=== PATIENT | male | born 1945 | race Caucasian/White ===

== ENCOUNTER 2022-10-04 18:58 | Observation (INO) | payer MEDICARE, SELFPAY ==
[2022-10-04] VITALS (22 sets, daily range): BP systolic 112–164; BP diastolic 71–101; PULSE 58–81; RESP 16–18; TEMP 36.7–36.9; O2SAT 96–100; BMI 25.1
--- NOTE | 2022-10-04 19:14 | CRLHL7_ITS ---
For Patients: As a result of the Century Cures Act, medical imaging exams and procedure reports are released immediately into your electronic medical record. You may view this report before your referring provider. If you have questions, please contact your health care provider. INDICATION: .DIZZINESS, VISION CHANGES TECHNIQUE: Head CT without contrast. COMPARISON: None. FINDINGS: Periventricular areas of low attenuation, likely due to chronic small vessel ischemic changes. Generalized volume loss. Atherosclerosis. No intracranial hemorrhage. No discrete mass or mass effect. There is no midline shift. The basilar cisterns are patent. No hydrocephalus. The torrez-white matter interface is otherwise preserved. No acute osseous abnormality. No extracalvarial soft tissue abnormality. The mastoid air cells are clear. The paranasal sinuses are well-aerated. The visualized portions of the orbits and globes are unremarkable. IMPRESSION: No acute intracranial process per unenhanced head CT. Findings conveyed to Dr. Gleason at 8:08 p.m. October 04, 2022. Please note that all CT scans at this facility use dose modulation, iterative reconstruction, and/or weight-based dosing when appropriate to reduce radiation dose to as low as reasonably achievable. Dictated by Caesar Martinez MD @ 10/04/2022 8:11:29 PM (Electronically Signed)
--- NOTE | 2022-10-04 19:14 | ED.GENADULT ---
HPI - General Adult General Time Seen by Provider: 19:14 <Morena Dupont MD - Last Filed: 10/04/22 21:03> Date Seen: 10/04/22 <Morena Dupont MD - Last Filed: 10/04/22 21:03> Chief complaint: Unspecified Complaint, Adult <Morena Dupont MD - Last Filed: 10/04/22 21:03> Stated complaint: Blurred vision, confusion <Morena Dupont MD - Last Filed: 10/04/22 21:03> Time Seen by Provider: 10/04/22 19:12 <Morena Dupont MD - Last Filed: 10/04/22 21:03> Source: patient, family and RN notes reviewed <Morena Dupont MD - Last Filed: 10/04/22 21:03> Mode of arrival: ambulatory <Morena Dupont MD - Last Filed: 10/04/22 21:03> Limitations: no limitations <Morena Dupont MD - Last Filed: 10/04/22 21:03> History of Present Illness HPI narrative: Patient is a 77-year-old male with potential stroke symptoms that was sent directly to have a head CT. He was seen right away after coming back from head CT. Patient was self presenting to the ER with his with concerns of dizziness, blurry vision mild headache. He took a nap about 4:00 p.m. and awoke at 5:30 a.m.. His noted at dinner that he had repetitive speech as well as word-finding difficulty. Patient was aware of this. Is dizziness really isn't a sense of spinning or vertigo. It may be a sense of imbalance. Earlier today at the dentist's he had some difficulty getting out of his chair. Prior to his nap at 4:00 p.m., his states he was quite sharp. She never noted any slurring speech at any time. There were no falls. He seems to be able to use his arms and legs. Denies any numbness or tingling anywhere. He did not note any double vision. Still may have a funny sense of dizziness in his head at this time. Believes the blurry vision might be both eyes. No known history of a stroke. Patient does have Parkinson's and is on a new medication that we are unaware of what it is at this time. He never had any sense of palpitations or irregular heartbeat, no chest pain. <Morena Dupont MD - Last Filed: 10/04/22 21:03> Related Data Home medications: Home Medications Medication Instructions Recorded Confirmed carbidopa-levodopa PO 10/04/22 <Morena Dupont MD - Last Filed: 10/04/22 21:03> Allergies/adverse reactions: Allergies Allergy/AdvReac Type Severity Reaction Status Date / Time Penicillins AdvReac Verified 10/04/22 19:24 <Morena Dupont MD - Last Filed: 10/04/22 21:03> Review of Systems Status of ROS: Reports: 6 or more systems reviewed and unremarkable except as noted in History and below <Morena Dupont MD - Last Filed: 10/04/22 21:03> [facility] Medical History: Medical History Parkinson disease ?G20 - Parkinson's disease (ICD-10) <Morena Dupont MD - Last Filed: 10/04/22 21:03> Social History: Social History Smoking Status: Never smoker Do you use any of these nicotine containing products: None How often do you have a drink containing alcohol: never AUDIT-C Alcohol total score: 0 Non-prescribed substance use: denies use <Morena Dupont MD - Last Filed: 10/04/22 21:03> Exam Const: Vital Signs, click to edit/add: Vital Signs - 24 hr 10/04/22 19:15 10/04/22 19:16 10/04/22 19:20 Temperature 98.1 F Pulse Rate 68 65 Pulse Rate [Left P ulse Oximeter] 81 Respiratory Rate 18 Blood Pressure 157/71 H Blood Pressure [Ri ght Upper Arm] 157/71 H Pulse Oximetry 99 99 96 Oxygen Delivery Me thod Room Air 10/04/22 19:30 10/04/22 19:31 10/04/22 19:32 Temperature Pulse Rate 63 64 63 Pulse Rate [Left P ulse Oximeter] Respiratory Rate 18 Blood Pressure 160/81 H 164/81 H Blood Pressure [Ri ght Upper Arm] Pulse Oximetry 99 99 99 Oxygen Delivery Me thod Room Air 10/04/22 19:48 10/04/22 19:53 10/04/22 20:00 Temperature Pulse Rate 72 68 67 Pulse Rate [Left P ulse Oximeter] Respiratory Rate 18 Blood Pressure 152/73 H Blood Pressure [Ri ght Upper Arm] Pulse Oximetry 97 100 99 Oxygen Delivery Me thod Room Air 10/04/22 20:02 10/04/22 20:03 10/04/22 20:07 Temperature Pulse Rate 68 69 Pulse Rate [Left P ulse Oximeter] Respiratory Rate 18 Blood Pressure 145/71 H Blood Pressure [Ri ght Upper Arm] Pulse Oximetry 99 99 98 Oxygen Delivery Me thod Room Air 10/04/22 20:15 10/04/22 20:17 10/04/22 20:30 Temperature Pulse Rate 69 67 66 Pulse Rate [Left P ulse Oximeter] Respiratory Rate Blood Pressure 158/73 H Blood Pressure [Ri ght Upper Arm] Pulse Oximetry 98 98 98 Oxygen Delivery Me thod 10/04/22 20:32 10/04/22 21:25 10/04/22 21:33 Temperature 98.4 F Pulse Rate 65 60 58 L Pulse Rate [Left P ulse Oximeter] Respiratory Rate 16 Blood Pressure 155/75 H 155/75 H 148/74 H Blood Pressure [Ri ght Upper Arm] Pulse Oximetry 98 98 98 Oxygen Delivery Me thod 10/04/22 21:47 10/04/22 22:02 Temperature Pulse Rate 59 L 58 L Pulse Rate [Left P ulse Oximeter] Respiratory Rate Blood Pressure 112/101 H 155/75 H Blood Pressure [Ri ght Upper Arm] Pulse Oximetry 98 98 Oxygen Delivery Me thod <Morena Dupont MD - Last Filed: 10/04/22 21:03> Vital Signs, click to edit/add: Vital Signs - 24 hr 10/04/22 19:15 10/04/22 19:16 10/04/22 19:20 Temperature 98.1 F Pulse Rate 68 65 Pulse Rate [Left P ulse Oximeter] 81 Respiratory Rate 18 Blood Pressure 157/71 H Blood Pressure [Ri ght Upper Arm] 157/71 H Pulse Oximetry 99 99 96 Oxygen Delivery Me thod Room Air 10/04/22 19:30 10/04/22 19:31 10/04/22 19:32 Temperature Pulse Rate 63 64 63 Pulse Rate [Left P ulse Oximeter] Respiratory Rate 18 Blood Pressure 160/81 H 164/81 H Blood Pressure [Ri ght Upper Arm] Pulse Oximetry 99 99 99 Oxygen Delivery Me thod Room Air 10/04/22 19:48 10/04/22 19:53 10/04/22 20:00 Temperature Pulse Rate 72 68 67 Pulse Rate [Left P ulse Oximeter] Respiratory Rate 18 Blood Pressure 152/73 H Blood Pressure [Ri ght Upper Arm] Pulse Oximetry 97 100 99 Oxygen Delivery Me thod Room Air 10/04/22 20:02 10/04/22 20:03 10/04/22 20:07 Temperature Pulse Rate 68 69 Pulse Rate [Left P ulse Oximeter] Respiratory Rate 18 Blood Pressure 145/71 H Blood Pressure [Ri ght Upper Arm] Pulse Oximetry 99 99 98 Oxygen Delivery Me thod Room Air 10/04/22 20:15 10/04/22 20:17 10/04/22 20:30 Temperature Pulse Rate 69 67 66 Pulse Rate [Left P ulse Oximeter] Respiratory Rate Blood Pressure 158/73 H Blood Pressure [Ri ght Upper Arm] Pulse Oximetry 98 98 98 Oxygen Delivery Me thod 10/04/22 20:32 10/04/22 21:25 10/04/22 21:33 Temperature 98.4 F Pulse Rate 65 60 58 L Pulse Rate [Left P ulse Oximeter] Respiratory Rate 16 Blood Pressure 155/75 H 155/75 H 148/74 H Blood Pressure [Ri ght Upper Arm] Pulse Oximetry 98 98 98 Oxygen Delivery Me thod 10/04/22 21:47 10/04/22 22:02 Temperature Pulse Rate 59 L 58 L Pulse Rate [Left P ulse Oximeter] Respiratory Rate Blood Pressure 112/101 H 155/75 H Blood Pressure [Ri ght Upper Arm] Pulse Oximetry 98 98 Oxygen Delivery Me thod <Russell T Aleman, MD - Last Filed: 10/04/22 23:02> Documenting provider has reviewed patient's vital signs: yes <Morena Dupont MD - Last Filed: 10/04/22 21:03> Common normals: no apparent distress, average body habitus, oriented x3, no limitations, healthy appearing, alert and well nourished <Morena Dupont MD - Last Filed: 10/04/22 21:03> General appearance: cooperative, comfortable, well kempt and well developed <Morena Dupont MD - Last Filed: 10/04/22 21:03> HENMT: Common normals: normocephalic, head/scalp atraumatic, hearing grossly normal bilaterally and external ears normal <Morena Dupont MD - Last Filed: 10/04/22 21:03> Head and scalp: normocephalic and atraumatic <Morena Dupont MD - Last Filed: 10/04/22 21:03> Face and sinus: normal facial exam <Morena Dupont MD - Last Filed: 10/04/22 21:03> External ear: external ears normal <Morena Dupont MD - Last Filed: 10/04/22 21:03> Other: Does seem like he may have slight jaw tremor on talking to him. <Morena Dupont MD - Last Filed: 10/04/22 21:03> Eye: Common normals: PERRL, EOMs intact bilaterally, conjunctivae normal, no scleral icterus and normal visual spicer by confrontation <Morena Dupont MD - Last Filed: 10/04/22 21:03> Eyelid: eyelids normal <Morena Dupont MD - Last Filed: 10/04/22 21:03> Conjunctiva: conjunctiva(e) normal <Morena Dupont MD - Last Filed: 10/04/22 21:03> Pupil: PERRL <Morena Dupont MD - Last Filed: 10/04/22 21:03> Neck & C-Spine: Common normals: full ROM, no lymphadenopathy and supple <Morena Dupont MD - Last Filed: 10/04/22 21:03> Resp: Common normals: normal respiratory effort, no retractions, no use of accessory muscles and clear to auscultation bilaterally <Morena Duopnt MD - Last Filed: 10/04/22 21:03> Auscultation: clear to auscultation bilaterally <Morena Dupont MD - Last Filed: 10/04/22 21:03> Cardio: Common normals: regular rate, regular rhythm, S1 normal heart sound, S2 normal heart sound, no gallops, no clicks and no murmurs <Morena Dupont MD - Last Filed: 10/04/22 21:03> Rate: regular rate <Morena Dupont MD - Last Filed: 10/04/22 21:03> Rhythm: regular rhythm <Morena Dupont MD - Last Filed: 10/04/22 21:03> Heart sounds: S1 normal and S2 normal <Morena Dupont MD - Last Filed: 10/04/22 21:03> GI: Common normals: Normal to inspection, nondistended, normoactive bowel sounds present, soft to palpation, non-tender, no hepatosplenomegaly and no masses <Morena Dupont MD - Last Filed: 10/04/22 21:03> Palpation: soft and no hepatosplenomegaly <Morena Dupont MD - Last Filed: 10/04/22 21:03> Extremity: Common normals: no calf tenderness and no pedal edema <Morena Dupont MD - Last Filed: 10/04/22 21:03> Neuro: Morrison Coma Scale: document GCS findings Payal coma scale eye opening: Spontaneous (4) Payal coma scale verbal response: Orientated (5) Payal coma scale motor response: Obey commands (6) Morrison coma scale total score: 15 <Morena Dupont MD - Last Filed: 10/04/22 21:03> Payal Coma Scale: document GCS findings Payal coma scale total score: 15 <Russell Aleman MD - Last Filed: 10/04/22 23:02> Common normals: oriented x3, CN's II-XII intact bilaterally, moves all extremities, no focal motor deficits and no sensory deficits noted <Morena Dupont MD - Last Filed: 10/04/22 21:03> Sensorium/orientation: alert <Morena Dupont MD - Last Filed: 10/04/22 21:03> Speech: speech normal <Morena Dupont MD - Last Filed: 10/04/22 21:03> Psych: Appearance: well kempt <Morena Dupont MD - Last Filed: 10/04/22 21:03> Course Course Hospital Course: Patient already had his emergent head CT. We will be talking to Stroke Neurology hopefully shortly. Will get appropriate labs. He will be on cardiac monitoring and pulse oximetry but no evidence of arrhythmia at this time based on initial EKG. Would say initial NIH is 0 at this time. Other possible etiologies are metabolic, infectious, side effects of medication. Do need to try to work on medication reconciliation for this patient. <Morena Dupont MD - Last Filed: 10/04/22 21:03> Reevaluation(s) Time of Reevaluation #1: 20:10 <Morena Dupont MD - Last Filed: 10/04/22 21:03> Reevaluation #1: Have reviewed with patient stroke neurology recommendations. He states he has been told not to take aspirin/nsaids due to anemia history. For the time being, we are going to give dose tonight and see if we can access more records on him. His care is at [facility], neurology at [facility] for [facility]. <Morena Dupont MD - Last Filed: 10/04/22 21:03> Time of Reevaluation #2: 20:39 <Morena Dupont MD - Last Filed: 10/04/22 21:03> Reevaluation #2: It is reported to me that patient is getting his MRI now. Will await this test. Obviously we will not need to wait until tomorrow. Hospitalist will await MRI result and see if there is still need for admission. <Morena Dupont MD - Last Filed: 10/04/22 21:03> Time of Reevaluation #3: 22:49 <Russell Almean MD - Last Filed: 10/04/22 23:02> Reevaluation #3: MRI is negative, patient rechecked and symptoms are resolved. Care discussed with stroke neurology who recommends admission for further workup, recommends full-dose aspirin which is already being given at starting daily aspirin daily. Care discussed with Dr. Mckeon, hospitalist to defers admission to overnight e-hospitalist. 23:00 Care discussed with [facility] e-hospitalist. <Russell Aleman MD - Last Filed: 10/04/22 23:02> Consultations Consultation #1: Spoke with Dr. Jones, he reviewed head CT, would like CTA's done. Likely no lytics. He will talk to us after these are done. 8:05 p.m.: Have spoken with Stroke Neurology. The CTA is not showing any concerns as far cerebrovascular disease. 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 He would like patient to have 324 mg aspirin now, 81 mg aspirin likely starting tomorrow. No further anti-platelet medicine at this time. Await MRI brain tomorrow for further management. He would like him observed in the hospital overnight. <Morena Dupont MD - Last Filed: 10/04/22 21:03> Time: 19:32 <Morena Dupont MD - Last Filed: 10/04/22 21:03> Consultation #2: Spoke with hospitalist Dr. Holguin regarding patient and neurologist's recommendations. He accepts cares for observation. <Morena Dupont MD - Last Filed: 10/04/22 21:03> Time: 20:13 <Morena Dupont MD - Last Filed: 10/04/22 21:03> 22:42 <Russell Aleman MD - Last Filed: 10/04/22 23:02> Consultation #3: MRI is negative, care discussed with stroke neurology who again recommends admission for further evaluation. <Russell Aleman MD - Last Filed: 10/04/22 23:02> Vital Signs Vital signs: Initial Vital Signs Pulse Rate 68 10/04/22 19:15 Blood Pressure 157/71 H 10/04/22 19:15 Blood Pressure Mean 99 10/04/22 19:15 Pulse Oximetry 99 10/04/22 19:15 Vital Signs Pulse Rate 68 10/04/22 19:15 Blood Pressure 157/71 H 10/04/22 19:15 Pulse Oximetry 99 10/04/22 19:15 Temperature 98.4 F 10/04/22 21:25 Pulse Rate 58 L 10/04/22 22:02 Respiratory Rate 16 10/04/22 21:25 Blood Pressure 155/75 H 10/04/22 22:02 Pulse Oximetry 98 10/04/22 22:02 Oxygen Delivery Method Room Air 10/04/22 20:02 <Morena Dupont MD - Last Filed: 10/04/22 21:03> Initial Vital Signs Pulse Rate 68 10/04/22 19:15 Blood Pressure 157/71 H 10/04/22 19:15 Blood Pressure Mean 99 10/04/22 19:15 Pulse Oximetry 99 10/04/22 19:15 Vital Signs Pulse Rate 68 10/04/22 19:15 Blood Pressure 157/71 H 10/04/22 19:15 Pulse Oximetry 99 10/04/22 19:15 Temperature 98.4 F 10/04/22 21:25 Pulse Rate 58 L 10/04/22 22:02 Respiratory Rate 16 10/04/22 21:25 Blood Pressure 155/75 H 10/04/22 22:02 Pulse Oximetry 98 10/04/22 22:02 Oxygen Delivery Method Room Air 10/04/22 20:02 <Russell Aleman MD - Last Filed: 10/04/22 23:02> Medical Decision Making Lab Data Lab results reviewed: Yes I reviewed the patient's lab results <Morena Dupont MD - Last Filed: 10/04/22 21:03> Labs: Lab Results 10/04/22 Range/Units 19:25 WBC 5.75 (4.50-11.00) K/uL RBC 4.26 L (4.30-5.90) m/uL Hgb 13.4 L (13.5-17.5) gm/dL Hct 39.4 (37.0-53.0) % MCV 93 (80-100) fL MCH 32 (26-34) pg MCHC 34 (32-36) gm/dL RDW Coeff of Julito 12.2 (11.5-15.5) % Plt Count 206 (140-440) K/uL Neut % (Auto) 61.0 (42.0-72.0) % Lymph % (Auto) 27.0 (20-44) % [place] % (Auto) 8.0 (0.0-11.0) % Eos % (Auto) 2.8 (0.0-7.0) % Baso % (Auto) 0.3 (0.0-3.0) % Neut # (Auto) 3.51 (1.7-7.0) K/uL Lymph # (Auto) 1.55 (0.90-2.90) K/uL [place] # (Auto) 0.50 (0.00-0.90) K/UL Eos # (Auto) 0.16 (0.00-0.50) K/uL Baso # (Auto) 0.02 (0.00-0.30) K/uL Abs Immat Gran (auto) 0.05 (0.00-0.30) K/uL Imm/Tot Granulo (auto) 0.9 % INR 0.94 (0.91-1.10) APTT 28 (23-33) Seconds Sodium 140 (135-149) mmol/L Potassium 4.0 (3.6-5.1) mmol/L Chloride 103 (96-114) mmol/L Carbon Dioxide 26 (20-32) mmol/L BUN 23 (7-30) mg/dL Creatinine 1.2 (0.5-1.5) mg/dL Estimated Creat Clear 55.78 Estimated GFR 63 ml/min Glucose 167 H (60-115) mg/dL Calcium 9.3 (8.4-10.6) mg/dL Total Bilirubin 0.7 (0.1-1.5) mg/dL AST 32 (12-35) U/L ALT 9 (4-50) U/L Alkaline Phosphatase 61 (40-150) U/L Troponin I < 0.01 L (0.01-0.04) ng/mL NT-Pro-B Natriuret Pep 235 pg/mL Total Protein 7.7 (6.0-8.3) g/dL Albumin 4.7 (3.3-5.0) g/dL <Morena Dupont MD - Last Filed: 10/04/22 21:03> Lab Results 10/04/22 Range/Units 19:25 WBC 5.75 (4.50-11.00) K/uL RBC 4.26 L (4.30-5.90) m/uL Hgb 13.4 L (13.5-17.5) gm/dL Hct 39.4 (37.0-53.0) % MCV 93 (80-100) fL MCH 32 (26-34) pg MCHC 34 (32-36) gm/dL RDW Coeff of Julito 12.2 (11.5-15.5) % Plt Count 206 (140-440) K/uL Neut % (Auto) 61.0 (42.0-72.0) % Lymph % (Auto) 27.0 (20-44) % [place] % (Auto) 8.0 (0.0-11.0) % Eos % (Auto) 2.8 (0.0-7.0) % Baso % (Auto) 0.3 (0.0-3.0) % Neut # (Auto) 3.51 (1.7-7.0) K/uL Lymph # (Auto) 1.55 (0.90-2.90) K/uL [place]ette # (Auto) 0.50 (0.00-0.90) K/UL Eos # (Auto) 0.16 (0.00-0.50) K/uL Baso # (Auto) 0.02 (0.00-0.30) K/uL Abs Immat Gran (auto) 0.05 (0.00-0.30) K/uL Imm/Tot Granulo (auto) 0.9 % INR 0.94 (0.91-1.10) APTT 28 (23-33) Seconds Sodium 140 (135-149) mmol/L Potassium 4.0 (3.6-5.1) mmol/L Chloride 103 (96-114) mmol/L Carbon Dioxide 26 (20-32) mmol/L BUN 23 (7-30) mg/dL Creatinine 1.2 (0.5-1.5) mg/dL Estimated Creat Clear 55.78 Estimated GFR 63 ml/min Glucose 167 H (60-115) mg/dL Calcium 9.3 (8.4-10.6) mg/dL Total Bilirubin 0.7 (0.1-1.5) mg/dL AST 32 (12-35) U/L ALT 9 (4-50) U/L Alkaline Phosphatase 61 (40-150) U/L Troponin I < 0.01 L (0.01-0.04) ng/mL NT-Pro-B Natriuret Pep 235 pg/mL Total Protein 7.7 (6.0-8.3) g/dL Albumin 4.7 (3.3-5.0) g/dL <Russell Aleman MD - Last Filed: 10/04/22 23:02> Imaging Data CT scan - head: Attestation: I have reviewed the pertinent imaging results. <Morena Dupont MD - Last Filed: 10/04/22 21:03> Radiologist's impression: Patient: CESAR JOHN Facility:?[facility] Patient ID:?[id number] Site Patient ID:?[id number]. Site :?[id number] Study:?CT Head STROKE CODE-10/04/2022 7:27:37 PM Ordering Physician:Clare Berg Final Report: INDICATION: .DIZZINESS, VISION CHANGES TECHNIQUE: Head CT without contrast. COMPARISON: None. FINDINGS: Periventricular areas of low attenuation, likely due to chronic small vessel ischemic changes. Generalized volume loss. Atherosclerosis. No intracranial hemorrhage. No discrete mass or mass effect. There is no midline shift. The basilar cisterns are patent. No hydrocephalus. The torrez-white matter interface is otherwise preserved. No acute osseous abnormality. No extracalvarial soft tissue abnormality. The mastoid air cells are clear. The paranasal sinuses are well-aerated. The visualized portions of the orbits and globes are unremarkable. IMPRESSION: No acute intracranial process per unenhanced head CT. Findings conveyed to Dr. Gleason at 8:08 p.m. October 04, 2022. Please note that all CT scans at this facility use dose modulation, iterative reconstruction, and/or weight-based dosing when appropriate to reduce radiation dose to as low as reasonably achievable. Dictated by Caesar Martinez MD @ 10/04/2022 8:11:29 PM (Electronic Signature) <Morena Dupont MD - Last Filed: 10/04/22 21:03> CT- Other: Attestation: I have reviewed the pertinent imaging results. <Morena Dupont MD - Last Filed: 10/04/22 21:03> Radiologist's impression: Patient: CESAR JOHN Facility:?[facility] Patient ID:?[id number] Site Patient ID:?[id number]. Site :?1945 Study:?CT Neck Angio Angio STROKE CODE-10/04/2022 7:51:31 PM Ordering Physician:Clare Berg Preliminary Report: COMPARISON: None. IMPRESSION: CTA head: Normal filling of both distal ICA, anterior and middle cerebral branches. The basilar and posterior cerebral arteries are normal. No arterial occlusion is seen. No aneurysm is seen. CTA neck: Normal filling of both common, proximal, mid, and distal ICAs, and vertebral arteries. Hypoplastic right vertebral artery. No arterial occlusion is seen. No aneurysm is seen. Dictated by Caesar Martinez MD @ 10/04/2022 8:46:44 PM Read by:?Caesar Martinez MD @ 10/04/2022 20:46:48 <Morena Dupont MD - Last Filed: 10/04/22 21:03> ECG Data Attestation: I personally reviewed and interpreted this ECG as follows: (Normal sinus rhythm, normal EKG. 60 beats per minute. QT corrected 429 milliseconds.) <Morena Dupont MD - Last Filed: 10/04/22 21:03> Prior ECG tracings: not available for review <Morena Dupont MD - Last Filed: 10/04/22 21:03> Discharge Plan Discharge Clinical Impression: Word finding difficulty, Dizziness, Parkinson's disease <Morena Dupont MD - Last Filed: 10/04/22 21:03> Patient Disposition: Admitted As Observation <Morena Dupont MD - Last Filed: 10/04/22 21:03>
--- NOTE | 2022-10-04 19:34 | CRLHL7_ITS ---
For Patients: As a result of the Century Cures Act, medical imaging exams and procedure reports are released immediately into your electronic medical record. You may view this report before your referring provider. If you have questions, please contact your health care provider. INDICATION: Dizziness, visual changes. TECHNIQUE: CTA neck with contrast bolus tracking, 3D angiographic rendering using maximum intensity projection (MIP) and images permanently archived. FINDINGS: There is minor carotid atherosclerosis. There is no significant carotid artery stenosis or dissection. There is no significant vertebral artery stenosis or dissection. The soft tissues of the neck are within normal limits. The cervical spine is in normal alignment. Degenerative changes are noted in the cervical spine. IMPRESSION: No significant carotid or vertebral artery stenosis or dissection. Please note that all CT scans at this facility use dose modulation, iterative reconstruction, and/or weight-based dosing when appropriate to reduce radiation dose to as low as reasonably achievable. Dictated by Ronaldo Curry MD @ 10/05/2022 1:48:12 PM (Electronically Signed)
[2022-10-04 19:44] LABS: Basophils Absolute Auto 0.02 K/uL (0.00-0.30); Basophils Percent Auto 0.3 % (0.0-3.0); Eosinophils Absolute Auto 0.16 K/uL (0.00-0.50); Eosinophils Percent Auto 2.8 % (0.0-7.0); Hematocrit 39.4 % (37.0-53.0); Hemoglobin* 13.4 gm/dL (13.5-17.5); Immature Granulocytes Abs Auto 0.05 K/uL (0.00-0.30); Immature Granulocytes Pct Auto 0.9 %; Lymphocytes Absolute Auto 1.55 K/uL (0.90-2.90); Mean Corpuscular HGB Conc 34 gm/dL (32-36); Mean Corpuscular Hemoglobin 32 pg (26-34); Mean Corpuscular Volume 93 fL (80-100); Neutrophils Absolute Auto 3.51 K/uL (1.7-7.0); Platelet Count* 206 K/uL (140-440); RDW Coefficient of Variation % 12.2 % (11.5-15.5); Red Blood Count 4.26 m/uL (4.30-5.90); White Blood Count* 5.75 K/uL (4.50-11.00)
[2022-10-04 19:49] LABS: Slide Review Reflex No
[2022-10-04 19:58] LABS: Albumin* 4.7 g/dL (3.3-5.0); Chloride* 103 mmol/L (96-114)
[2022-10-04 19:59] LABS: INR 0.94 (0.91-1.10); Prothrombin Time 13.1 Seconds; Sodium* 140 mmol/L (135-149)
[2022-10-04 20:00] LABS: Partial Thromboplastin Time* 28 Seconds (23-33)
[2022-10-04 20:01] LABS: Alkaline Phosphatase* 61 U/L (40-150); Aspartate Amino Transferase* 32 U/L (12-35); Bilirubin Total* 0.7 mg/dL (0.1-1.5); Blood Urea Nitrogen* 23 mg/dL (7-30); Carbon Dioxide* 26 mmol/L (20-32); Creatinine* 1.2 mg/dL (0.5-1.5); Est. Creatinine Clearance* 55.78; Estimated Glomerular Filt Rate 63 ml/min; Total Protein* 7.7 g/dL (6.0-8.3)
[2022-10-04 20:02] LABS: Alanine Aminotransferase* 9 U/L (4-50); Calcium* 9.3 mg/dL (8.4-10.6); Glucose* 167 mg/dL (60-115)
--- NOTE | 2022-10-04 20:07 | CRLHL7_ITS ---
For Patients: As a result of the Century Cures Act, medical imaging exams and procedure reports are released immediately into your electronic medical record. You may view this report before your referring provider. If you have questions, please contact your health care provider. INDICATION: Dizziness, vision issues, episode of word finding difficulty. TECHNIQUE: Multiplanar multisequence MRI of the brain without contrast. COMPARISON: CT head 10/04/2022. FINDINGS: Small focus of susceptibility artifact in the right thalamus, likely chronic microhemorrhage. No acute intracranial hemorrhage, mass effect, or extra-axial fluid collection. No restricted diffusion. Proportionate prominence of the ventricles and sulci, reflecting mild generalized cerebral volume loss. Scattered foci of T2 FLAIR hyperintense signal in the supratentorial white matter and pau, nonspecific but statistically likely representing chronic small vessel ischemic disease. Midline structures are intact. Flow voids at the skull base are maintained. Orbits and calvarium are unremarkable. Paranasal sinuses and mastoid air cells are clear. IMPRESSION: 1. No acute intracranial abnormality. 2. Mild generalized cerebral volume loss and chronic small vessel ischemic disease. 3. Chronic microhemorrhage right thalamus. Dictated by Eder Jenkins MD @ 10/04/2022 10:28:10 PM (Electronically Signed)
[2022-10-04 20:11] LABS: NT Pro B Type NatriureticPept* 235 pg/mL
[2022-10-04 20:16] LABS: Troponin I* < 0.01 ng/mL (0.01-0.04)
[2022-10-04] MEDS: ASPIRIN 81 MG TAB.CHEW 324 MG PO (20:19)
[2022-10-05] VITALS: PULSE 55; RESP 16; RESP 18; TEMP 36.6; O2SAT 97; O2SAT 98; BMI 26.4
--- NOTE | 2022-10-05 00:14 | PM.IMCN1 ---
Date of Consult Consult date: 10/05/22 Requesting Physician: Hospitalist Primary Care Provider: Not a Local Provider Consult Narrative Narrative: Jagdish Portillo is a 77 year old male [facility] Medical History Parkinson disease ?G20 - Parkinson's disease (ICD-10) Social History Smoking Status: Never smoker Do you use any of these nicotine containing products: None How often do you have a drink containing alcohol: never AUDIT-C Alcohol total score: 0 Non-prescribed substance use: denies use Meds Home Medications and Allergies Home Medications Medication Instructions Recorded Confirmed Type carbidopa-levodopa PO 10/04/22 History Allergies Allergy/AdvReac Type Severity Reaction Status Date / Time Penicillins AdvReac Verified 10/04/22 19:24 Exam Const: Vital Signs, click to edit/add: Vital Signs - 24 hr 10/04/22 19:15 10/04/22 19:16 10/04/22 19:20 Temperature 98.1 F Pulse Rate 68 65 Pulse Rate [Left P ulse Oximeter] 81 Respiratory Rate 18 Blood Pressure 157/71 H Blood Pressure [Ri ght Upper Arm] 157/71 H Pulse Oximetry 99 99 96 Oxygen Delivery Me thod Room Air 10/04/22 19:30 10/04/22 19:31 10/04/22 19:32 Temperature Pulse Rate 63 64 63 Pulse Rate [Left P ulse Oximeter] Respiratory Rate 18 Blood Pressure 160/81 H 164/81 H Blood Pressure [Ri ght Upper Arm] Pulse Oximetry 99 99 99 Oxygen Delivery Me thod Room Air 10/04/22 19:48 10/04/22 19:53 10/04/22 20:00 Temperature Pulse Rate 72 68 67 Pulse Rate [Left P ulse Oximeter] Respiratory Rate 18 Blood Pressure 152/73 H Blood Pressure [Ri ght Upper Arm] Pulse Oximetry 97 100 99 Oxygen Delivery Me thod Room Air 10/04/22 20:02 10/04/22 20:03 10/04/22 20:07 Temperature Pulse Rate 68 69 Pulse Rate [Left P ulse Oximeter] Respiratory Rate 18 Blood Pressure 145/71 H Blood Pressure [Ri ght Upper Arm] Pulse Oximetry 99 99 98 Oxygen Delivery Me thod Room Air 10/04/22 20:15 10/04/22 20:17 10/04/22 20:30 Temperature Pulse Rate 69 67 66 Pulse Rate [Left P ulse Oximeter] Respiratory Rate Blood Pressure 158/73 H Blood Pressure [Ri ght Upper Arm] Pulse Oximetry 98 98 98 Oxygen Delivery Me thod 10/04/22 20:32 10/04/22 21:25 10/04/22 21:33 Temperature 98.4 F Pulse Rate 65 60 58 L Pulse Rate [Left P ulse Oximeter] Respiratory Rate 16 Blood Pressure 155/75 H 155/75 H 148/74 H Blood Pressure [Ri ght Upper Arm] Pulse Oximetry 98 98 98 Oxygen Delivery Me thod 10/04/22 21:47 10/04/22 22:02 10/04/22 22:17 Temperature Pulse Rate 59 L 58 L 60 Pulse Rate [Left P ulse Oximeter] Respiratory Rate Blood Pressure 112/101 H 155/75 H 156/71 H Blood Pressure [Ri ght Upper Arm] Pulse Oximetry 98 98 98 Oxygen Delivery Me thod 10/04/22 22:32 Temperature Pulse Rate 58 L Pulse Rate [Left P ulse Oximeter] Respiratory Rate Blood Pressure 150/83 H Blood Pressure [Ri ght Upper Arm] Pulse Oximetry 97 Oxygen Delivery Me thod Labs Labs: Short CBC 10/04/22 Range/Units 19:25 WBC 5.75 (4.50-11.00) K/uL Hgb 13.4 L (13.5-17.5) gm/dL Hct 39.4 (37.0-53.0) % Plt Count 206 (140-440) K/uL BMP 10/04/22 19:25 Sodium 140 Potassium 4.0 Chloride 103 Carbon Dioxide 26 BUN 23 Creatinine 1.2 Glucose 167 H Calcium 9.3 Cardiac Enzymes 10/04/22 Range/Units 19:25 Troponin I < 0.01 L (0.01-0.04) ng/mL Liver Function 10/04/22 Range/Units 19:25 Total Bilirubin 0.7 (0.1-1.5) mg/dL AST 32 (12-35) U/L ALT 9 (4-50) U/L Alkaline Phosphatase 61 (40-150) U/L Albumin 4.7 (3.3-5.0) g/dL Assessment and Plan Assessment and plan (1) Dizziness: Status: Acute (2) Parkinson's disease: Status: Acute (3) Word finding difficulty: Status: Acute Plan [facility] ADMISSION SUPPORT NOTE eHospitalist was contacted by Dr. Aleman with request of admission support for [] History taken by speaking to the ED provider and patient on tele visit. HPI: Patient is a 77-year-old male with medical history of Parkinson disease on carbidopa levodopa, who presents to ER with chief complaint of dizziness without vertigo, having speech disturbance with repetition and word finding difficulty. He also had a sensation of blurring vision , he was able to ambulate prior to arrival, no reported focal weakness numbness or diplopia. He was at his baseline health around 4 PM when he went to take a nap and woke up at 5:30 with these deficits. On arrival stroke pathway was initiated and patient was managed in discussion with stroke neurology, during his ED course CT head CTA head and neck and MRI were done that were negative for stroke or acute abnormalities, he was given full dose 325 mg of aspirin and neurology recommended overnight observation given recent symptoms. No palpitations or chest pain. No fever or other focal symptoms. Patient's speech difficulty and dizziness significantly improved during his stay in ER. He still have mild headache in the frontal region. Home Medications: Carbidopa-levodopa Pertinent Medical History: Parkinson disease Pertinent Social History . not a smoker, denies alcohol as per EMR Exam (performed via interactive video with assistance of bedside nurse): General: alert, cooperative, no acute distress HEENT: Atraumatic head, eyes spontaneously open Lungs: Equal air entry bilaterally , no wheeze CV: normal rate and rhythm without loud murmur Abd: No abdominal distention Ext: no pitting edema noted Skin: no bruises on gross visualization of exposed skin Neuro: alert, oriented x3 . moves extremities without any new focal deficit against gravity for 10 and 5 seconds respectively, able to read at 6 feet using monocular vision although somewhat blurry on the right side, but patient has differential refractive at baseline, binocular vision intact grossly at around 5 feet Assessment and Plan: TIA Patient's presenting symptoms of dizziness and speech difficulties significantly improved CT head CTA head and neck, MRI negative for acute stroke as summarized above S/p 325 mg aspirin, patient to be started on 81 mg of aspirin daily tomorrow Continue other stroke work-up including telemetry monitoring, PT, speech therapy evaluation, A1c, lipid panel, consult neurology for further recommendations echo with bubble study, please order in am if available If hyperlipidemia noted, start on statin Allow permissive hypertension in first 24 hours, hold antihypertensive unless SBP greater than 220 Avoid hyperthermia, dehydration, start IVF if unable to eat, As needed Tylenol for headache Comorbidities Parkinson disease?continue home carbidopa levodopa at home dose once swallow screen done Patient reported he took his last dose today, and next due is in the morning of 10/05 Refractive Error b/l- f/u OP with ophthalmology Noted CBC and BMP, unremarkable but BSR 167, f/u a1c full code, SCDs, Lovenox, regular diet if passes swallow screen, appropriate for observation Thank you for including Denise Avery Hospitalist in the patients care. This service is available for further assistance as requested by your care team by calling [phone].
[2022-10-05 03:00] VITALS: BP 128/76; RESP 16; TEMP 36.6; O2SAT 95
[2022-10-05 06:32] LABS: Hemoglobin A1C* 5.16 % (0-5.6)
[2022-10-05 06:35] LABS: Cholesterol* 123 mg/dL (90-199); HDL Cholesterol* 41 mg/dL (>=40); LDL Cholesterol Calculated 62 mg/dL (<100); Triglycerides* 98 mg/dL (40-149)
--- NOTE | 2022-10-05 07:30 | PC.NURSE ---
Pt alert and oriented x3. Afebrile. Pt reported 3/10 pain headache, pt was offered pain medications, pt refused stating ?the aspirin helped? it is almost gone. Pt denies chest pain, SOB, and vomiting. Pt is up?SBA in room. Pt is tolerating a regular diet and voiding. Pt slept intermittently throughout night.?
[2022-10-05 07:34] VITALS: PULSE 62
[2022-10-05 08:00] VITALS: BP 155/89; RESP 18; TEMP 36.7; O2SAT 96
[2022-10-05] MEDS: CARBIDOPA-LEVODOPA 25-100 TABLET 2.5 TAB PO ×2 (08:42→12:30)
[2022-10-05 12:00] VITALS: BP 126/70; RESP 18; TEMP 36.7; O2SAT 96
[2022-10-05] MEDS: SODIUM CHLORIDE 0.9 % (FLUSH) 10 ML SYRINGE 5 ML IVF (12:30)
--- NOTE | 2022-10-05 12:53 | P.IMHP_ITS ---
Hospitalist- H&P: HPI History of Present Illness Date Seen: 10/05/22 Chief complaint: Blurred vision, confusion Narrative: ADMISSION HISTORY AND PHYSICAL - HOSPITALIST Chief Complaint: HPI: ER COURSE: CODE STATUS: EMERGENCY CONTACT PLAN: I've updated the [facility], medications and allergies in the Expanse tabs. INVESTIGATIONS: LABS/MICRO/ECG/IMAGING Afebrile. Blood pressure 126/70. Respiratory rate 18. Pulse ox 96% on room air. Weight is 86 kg CBC is unremarkable. INR 0.94 A1c 5.16 Electrolytes totally normal. Glucose 167. Troponin undetectable Normal cholesterol panel Normal thyroid IMPRESSION: CT head, CTA No acute intracranial process per unenhanced head CT. Brain MR 1. No acute intracranial abnormality. 2. Mild generalized cerebral volume loss and chronic small vessel ischemic disease. 3. Chronic microhemorrhage right thalamus. REVIEW OF SYSTEMS: 12-point ROS completed with patient and negative unless otherwise stated in HPI or below. PHYSICAL EXAM: CONSTITUTIONAL: Conversive, good historian. A/O. Knows setting and context. no obvious defect; speech issue. VITAL SIGNS: see record. HEENT: Normocephalic, atraumatic. PERRL, EOMI, conjunctivae pink, no scleral icterus. Ears and nose externally normal. Pharynx normal. NECK: No JVD. No carotid bruit, no thyromegaly, no adenopathy. CHEST: Clear to auscultation bilaterally HEART: S1 and S2 normal. No harsh murmurs. Edema MUSCULOSKELETAL: No gross joint deformity or swelling. NEURO: Cranial nerves intact. Grossly intact. No asymmetric findings. SKIN: No rashes, petechiae, concerning changes PSYCHIATRIC: Euthymic. ADMIT TO MEDSURG: FLOOR CARE DVT: SCDs GI: PO intake Time spent: 70 minutes examining patient, conferring with family and patient, care staff, developing care plan [facility] Medical History (Updated 10/05/22 @ 13:04 by Brenda Blanchard MD) Kidney stone ?N20.0 - Calculus of kidney (ICD-10) Crohn disease ?K50.90 - Crohn's disease, unspecified, without complications (ICD-10) Hyperlipidemia ?E78.5 - Hyperlipidemia, unspecified (ICD-10) Parkinson disease ?G20 - Parkinson's disease (ICD-10) Surgical History (Updated 10/05/22 @ 12:58 by Brenda Blanchard MD) History of tonsillectomy ?Z90.89 - Acquired absence of other organs (ICD-10) History of knee surgery ?Z98.890 - Other specified postprocedural states (ICD-10) Social History (Updated 10/05/22 @ 12:58 by Brenda Blanchard MD) Narrative: . see's PCP in [facility]) and PCP for Parkinson's is at [facility] What is your current living situation?: I presently have a place to live Problems where you live: no known problems Problems where you live details: no known problems In the past 12 months, utilities in danger of being shut off: no In the past 12 mos, have been you worried that your food would run out before you had money to buy more?: never true In the past 12 mos, the food you bought just didn't last and you didn't have money to buy more?: never true Smoking Status: Never smoker Do you use any of these nicotine containing products: None Second hand tobacco smoke exposure: No How often do you have a drink containing alcohol: monthly or less Alcohol type: beer and wine How often do you have six or more drinks on one occasion: Never AUDIT-C Alcohol total score: 1 Non-prescribed substance use: denies use Caffeine: No How often does anyone, including family, friends and others, physically hurt you : never How often does anyone, including family, friends and others, insult or talk down to you: never How often does anyone, including family, friends and others, threaten you with harm: never How often does anyone, including family, friends and others, scream or curse at you: never service: No Meds Home Medications and Allergies Home Medications Medication Instructions Recorded Confirmed Type atorvastatin 20 mg tablet 20 mg PO QHS 10/05/22 10/05/22 History carbidopa 25 mg-levodopa 100 mg 2.5 tab PO QID 10/05/22 10/05/22 History tablet folic acid-vit B6-vit B12 2.5 1 tab PO DAILY 10/05/22 10/05/22 History mg-25 mg-2 mg tablet (Folbic) melatonin 3 mg capsule 3 mg PO HS PRN 10/05/22 10/05/22 History meloxicam 15 mg tablet 15 mg PO DAILY 10/05/22 10/05/22 History Allergies Allergy/AdvReac Type Severity Reaction Status Date / Time Penicillins AdvReac Verified 10/04/22 19:24 Exam Const: Vital Signs, click to edit/add: Vital Signs - 24 hr 10/04/22 19:15 10/04/22 19:16 10/04/22 19:20 Temperature 98.1 F Pulse Rate 68 65 Pulse Rate [Left P ulse Oximeter] 81 Respiratory Rate 18 Blood Pressure 157/71 H Blood Pressure [Ri ght Arm] Blood Pressure [Ri ght Upper Arm] 157/71 H Pulse Oximetry 99 99 96 Oxygen Delivery Me thod Room Air 10/04/22 19:30 10/04/22 19:31 10/04/22 19:32 Temperature Pulse Rate 63 64 63 Pulse Rate [Left P ulse Oximeter] Respiratory Rate 18 Blood Pressure 160/81 H 164/81 H Blood Pressure [Ri ght Arm] Blood Pressure [Ri ght Upper Arm] Pulse Oximetry 99 99 99 Oxygen Delivery Me thod Room Air 10/04/22 19:48 10/04/22 19:53 10/04/22 20:00 Temperature Pulse Rate 72 68 67 Pulse Rate [Left P ulse Oximeter] Respiratory Rate 18 Blood Pressure 152/73 H Blood Pressure [Ri ght Arm] Blood Pressure [Ri ght Upper Arm] Pulse Oximetry 97 100 99 Oxygen Delivery Me thod Room Air 10/04/22 20:02 10/04/22 20:03 10/04/22 20:07 Temperature Pulse Rate 68 69 Pulse Rate [Left P ulse Oximeter] Respiratory Rate 18 Blood Pressure 145/71 H Blood Pressure [Ri ght Arm] Blood Pressure [Ri ght Upper Arm] Pulse Oximetry 99 99 98 Oxygen Delivery Me thod Room Air 10/04/22 20:15 10/04/22 20:17 10/04/22 20:30 Temperature Pulse Rate 69 67 66 Pulse Rate [Left P ulse Oximeter] Respiratory Rate Blood Pressure 158/73 H Blood Pressure [Ri ght Arm] Blood Pressure [Ri ght Upper Arm] Pulse Oximetry 98 98 98 Oxygen Delivery Me thod 10/04/22 20:32 10/04/22 21:25 10/04/22 21:33 Temperature 98.4 F Pulse Rate 65 60 58 L Pulse Rate [Left P ulse Oximeter] Respiratory Rate 16 Blood Pressure 155/75 H 155/75 H 148/74 H Blood Pressure [Ri ght Arm] Blood Pressure [Ri ght Upper Arm] Pulse Oximetry 98 98 98 Oxygen Delivery Me thod 10/04/22 21:47 10/04/22 22:02 10/04/22 22:17 Temperature Pulse Rate 59 L 58 L 60 Pulse Rate [Left P ulse Oximeter] Respiratory Rate Blood Pressure 112/101 H 155/75 H 156/71 H Blood Pressure [Ri ght Arm] Blood Pressure [Ri ght Upper Arm] Pulse Oximetry 98 98 98 Oxygen Delivery Me thod 10/04/22 22:32 10/05/22 00:00 10/05/22 00:00 Temperature 97.8 F Pulse Rate 58 L Pulse Rate [Left P ulse Oximeter] Respiratory Rate 18 16 Blood Pressure 150/83 H Blood Pressure [Ri ght Arm] Blood Pressure [Ri ght Upper Arm] Pulse Oximetry 97 98 97 Oxygen Delivery Va thod Room Air Room Air 10/05/22 00:00 10/05/22 03:00 10/05/22 07:34 Temperature 97.8 F Pulse Rate 55 L 62 Pulse Rate [Left P ulse Oximeter] Respiratory Rate 16 Blood Pressure Blood Pressure [Ri ght Arm] 128/76 Blood Pressure [Ri ght Upper Arm] Pulse Oximetry 95 Oxygen Delivery Va thod Room Air 10/05/22 08:00 10/05/22 08:00 10/05/22 12:00 Temperature 98.1 F 98.0 F Pulse Rate Pulse Rate [Left P ulse Oximeter] Respiratory Rate 18 18 18 Blood Pressure Blood Pressure [Ri ght Arm] 155/89 H 126/70 Blood Pressure [Ri ght Upper Arm] Pulse Oximetry 96 96 Oxygen Delivery Me thod Room Air Room Air Hospitalist - H&P: Result Labs Labs: Short CBC 10/04/22 Range/Units 19:25 WBC 5.75 (4.50-11.00) K/uL Hgb 13.4 L (13.5-17.5) gm/dL Hct 39.4 (37.0-53.0) % Plt Count 206 (140-440) K/uL BMP 10/04/22 19:25 Sodium 140 Potassium 4.0 Chloride 103 Carbon Dioxide 26 BUN 23 Creatinine 1.2 Glucose 167 H Calcium 9.3 Cardiac Enzymes 10/04/22 Range/Units 19:25 Troponin I < 0.01 L (0.01-0.04) ng/mL Liver Function 10/04/22 Range/Units 19:25 Total Bilirubin 0.7 (0.1-1.5) mg/dL AST 32 (12-35) U/L ALT 9 (4-50) U/L Alkaline Phosphatase 61 (40-150) U/L Albumin 4.7 (3.3-5.0) g/dL Assessment and Plan Assessment and plan (1) TIA (transient ischemic attack): Problem comment: Neuro recommended overnight observation. Lipid panel normal; on a statin, not d iabetic. BP normal. started aspirin 81mg daily. awaiting echo rev'd previous imaging. will likely dismiss after echo and with a daily aspirin. Status: Acute (2) Parkinson's disease: Problem comment: continue home sinemet. Status: Acute (3) Hyperlipidemia: Problem comment: on a statin Status: Acute (4) Aphasia: Status: Acute
--- NOTE | 2022-10-05 15:06 | PC.NURSE ---
VSS AND AFEBRILE. NEURO'S INTACT. UP WITH SBA IN ROOM AND TOLERATING ACTIVITY WELL. TOLERATING REGULAR DIET WITH NO C/O N/V. SALINE LOCK DC'D. REVIEWED DC INSTRUCTIONS WITH PATIENT AND . BOTH DENIED QUESTIONS OR CONCERNS. PATIENT DC'D HOME WITH .
== END 2022-10-05 14:43 | disposition home or self-care (01) ==
LOC: ED 22:33 → MEDSURG 23:14
PROVIDERS: Family Medicine; Internal Medicine; Admitting Provider Internal Medicine; Emergency Provider Family Medicine; Visit Provider Internal Medicine
DX: G45.9 Transient cerebral ischemic attack, unspecified (principal); R47.01 Aphasia; G20 Parkinson's disease; K50.90 Crohn's disease, unspecified, without complications; R47.89 Other speech disturbances; E78.5 Hyperlipidemia, unspecified; R41.0 Disorientation, unspecified; Z90.89 Acquired absence of other organs; R42 Dizziness and giddiness; R51.9 Headache, unspecified; H53.8 Other visual disturbances; Z98.890 Other specified postprocedural states; Z86.2 Personal history of diseases of the blood and blood-forming organs and certain disorders involving the immune mechanism
CPT/HCPCS: 36415; 70450; 70496; 70498; 70551; 80053; 80061; 83036; 83880; 84443; 84484; 85025; 85610; 85730; 93005; 93306; 94761; 97116; 97161; 99199; 99285; A9270; G0378; Q9967

== ENCOUNTER 2023-05-11 12:24 | Outpatient (CLI) | payer MEDICARE, SELFPAY | END 2023-05-11 12:25 | disposition home or self-care (01) | LOC: NFLDREF 05-23 20:46 | PROVIDERS: Visit Provider Nurse Practitioner Family | DX: R11.0 Nausea (principal); R82.90 Unspecified abnormal findings in urine | CPT/HCPCS: 87086 ==

== ENCOUNTER 2023-11-24 10:45 | Outpatient (RCR) | payer MEDICARE, SELFPAY ==
--- NOTE | 2023-10-11 15:21 | PT.OPEX ---
PT [place] Outpatient Eval PT [facility] Outpatient Eval Start: 10/11/23 07:19 Freq: Status: Active Protocol: Document 10/11/23 07:20 CRP (Rec: 10/11/23 09:45 CRP [id number]) E-signed By Clay Alarcon PT Physical Therapy Outpatient Evaluation Insurance Information Recert Due Date 01/09/24 Insurance Name Medicare B Medical Diagnosis Low Back Pain Referring MD Dr Mccann Subjective Subjective Pt c.o LBP that is either center or across the whole back. Has been going on about 3 years. Has had injections as well and medial branch block without improvement. Sitting is fine. Standing and walking increases his pain. Can only stand about 5-10 minutes and his pain ramps up. After about 1/2 mile of walking he needs to sit. Mowing the lawn is difficult. Maybe about 2 years ago had a run of PT and was instructed on some exercises. This did not seem to help. Sleep is an issue at times but not related to pain. Is more related to legs not feeling comfortable and tingling. Does use a soft back brace when up doing something that may cause sxs. Parkinson's diagnosis little over 2 years ago.MRI: Bilateral L5 pars defects with grade 1-2 anterolisthesis of L5 on S1 Pain Comments 0-8/10 Current Work Status Retired Objective Other/Pertinent Objective Posture: TL spine active extension pattern with increase lumbar spine muscle tone. Trunk ROM: Flex min dec, Ext tila dec, bilat SB mod/tila dec, Bilat rot min/mod dec, Hip ROM: Flex WNL bilat, ER 50 deg bilat, IR moderate restriction. Hip ext moderate restriction MMT: Myotomes WNL. Abd flexion 3+/5. Bridge test - 4 -/5 SLR negative bilat Functional Test Performed & Score Oswestry: 22 Assessment Assessment/Impression Pt presents to the clinic with signs and sxs consistent with lumbar spine DDD and spondylolisthesis. Pts presentation is characterized by painful loss of lumbar spine ROM, poor lumbopelvic motor control, lower quadrant deconditioning and an active extension pattern leading to increased lumbar spine rigidity. Skilled PT is necessary to incorporate ther ex, nm janey, ther act, manual therapy and pt education to decrease pain and improve functional mobility. 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 Pt will be independent with HEP in 8 weeks. 2. Pt will walk a mile for exer with 75% decrease in pain in 10 weeks. 3. Pt will complete pharmacist's aide with 75% decrease in pain in 12 weeks. Coordination/Communication With Referral Source Treatment Plan/Direct Interventions Joint Mobilization,Manual Therapy,Neuromuscular Re-ed, Self-Care/Home Management, Therapeutic Activities, Therapeutic Exercises Frequency/Duration 1-2x/wk for 12 weeks Patient Will Be Discharged From Therapy Completion of LTG(s),Skills Plateau,Independent w/HEP, Independently Progressing Evaluation Billing Untimed Code Treatment Minutes 30 Complexity Moderate Certification Information Initial Certification Date 10/11/23 Ending Certification Date 01/09/24 Provider Signature Required Yes Provider Signature Shows Agreement With POC & Medical Necessity Physician NPI Number Write NPI# Here Physician Comment/Change : Physician Signature & Date Requested Please Sign/Date Here
== END 2023-11-24 17:00 | disposition home or self-care (01) ==
PROVIDERS: PCP Family Medicine; Visit Provider Family Medicine
DX: M54.50 Low back pain, unspecified (principal); Z51.89 Encounter for other specified aftercare
CPT/HCPCS: 97110; 97140; 97162

== ENCOUNTER 2023-11-29 09:19 | Outpatient (CLI) | payer MEDICARE, SELFPAY | END 2023-11-29 09:20 | disposition home or self-care (01) | LOC: NFLDREF 12-04 06:57 | PROVIDERS: PCP Family Medicine; Referring Provider Family Medicine; Visit Provider Family Medicine | DX: D64.9 Anemia, unspecified (principal); E78.5 Hyperlipidemia, unspecified | CPT/HCPCS: 80053; 80061 ==

== ENCOUNTER 2024-06-18 09:11 | Outpatient (CLI) | payer MEDICARE, SELFPAY | END 2024-06-18 09:12 | disposition home or self-care (01) | LOC: INJ CL 09:13 | PROVIDERS: PCP Family Medicine; Visit Provider Family Medicine | DX: M54.16 Radiculopathy, lumbar region (principal); M51.369 Other intervertebral disc degeneration, lumbar region without mention of lumbar back pain or lower extremity pain; M48.062 Spinal stenosis, lumbar region with neurogenic claudication | CPT/HCPCS: 64483; J1100; Q9966 ==

== ENCOUNTER 2024-09-24 08:01 | Outpatient (CLI) | payer MEDICARE, SELFPAY | END 2024-09-24 08:02 | disposition home or self-care (01) | LOC: INJ CL 08:01 | PROVIDERS: PCP Family Medicine; Visit Provider Family Medicine | DX: M54.16 Radiculopathy, lumbar region (principal); M48.062 Spinal stenosis, lumbar region with neurogenic claudication | CPT/HCPCS: 64483; J1100; Q9966 ==

== ENCOUNTER 2024-12-03 07:58 | Outpatient (CLI) | payer MEDICARE, SELFPAY ==
--- NOTE | 2024-12-03 08:15 | CRLHL7_ITS ---
For Patients: As a result of the Century Cures Act, medical imaging exams and procedure reports are released immediately into your electronic medical record. You may view this report before your referring provider. If you have questions, please contact your health care provider. INDICATION: Lumbar stenosis Technique : Sagittal axial T1, sagittal axial T2 and sagittal STIR images were obtained. FINDINGS: Grade 2 spondylolisthesis at the L5-S1 level. 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 Normal alignment at the other lumbar levels. Multilevel spondylosis. No acute compression fractures. The distal spinal cord and conus medullaris appear normal conus terminates normally at the L1-2 interspace. No disc herniation or stenosis at the T11-12, T12-L1 or L1-2 levels. At L2-3 degenerative disc desiccation minor annular bulging no stenosis of the spinal canal or neural foramen. At L3-4 level degenerative disc desiccation Schmorl`s node deformity mild annular bulging mild facet enlargement no stenosis of the spinal canal mild bilateral foraminal narrowing. At L4-5 degenerative disc desiccation no disc herniation. Mild facet enlargement no stenosis of the spinal canal or neural foramen. At L5-S1 there is grade 2 spondylolisthesis with marked degenerative disc space narrowing and degenerative endplate signal changes. Spondylolysis of the bilateral L5 pars interarticularis. There is synovial cyst in the dorsal epidural space measuring up to 9 mm in diameter and causing mild deformity of the dorsal thecal sac. The there is an additional 9 mm cyst lateral to the left L5 pedicle. Bilateral L5 neural foraminal stenosis due to the spondylolisthesis with compression/flattening of both exiting L5 nerve roots. IMPRESSION: 1. At L5-S1 grade 2 spondylolisthesis. 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 Dorsal synovial cyst. Severe bilateral L5 neural foraminal stenosis and bilateral L5 nerve root impingement. 2. Less prominent disc degenerative changes at the other lumbar levels as described above. Dictated by Titi Jones MD @ 12/04/2024 9:25:09 AM (Electronically Signed)
== END 2024-12-03 07:59 | disposition home or self-care (01) ==
LOC: MRI 08:00
PROVIDERS: PCP Family Medicine; Visit Provider Orthopaedic Surgery Orthopaedic Surgery of the Spine
DX: M48.061 Spinal stenosis, lumbar region without neurogenic claudication (principal); M43.17 Spondylolisthesis, lumbosacral region; M51.369 Other intervertebral disc degeneration, lumbar region without mention of lumbar back pain or lower extremity pain
CPT/HCPCS: 72148

== ENCOUNTER 2024-12-05 08:35 | Outpatient (CLI) | payer MEDICARE, SELFPAY | END 2024-12-05 08:36 | disposition home or self-care (01) | LOC: NFLDREF 12-11 06:31 | PROVIDERS: PCP Family Medicine; Referring Provider Family Medicine; Visit Provider Family Medicine | DX: E78.5 Hyperlipidemia, unspecified (principal); Z12.5 Encounter for screening for malignant neoplasm of prostate | CPT/HCPCS: 80053; 80061; G0103 ==